=== PATIENT | female | born 1955 | race Hispanic/Latino ===

== ENCOUNTER 2020-12-09 06:59 | Observation (INO) | payer MEDICARE ==
[2020-12-08 11:20] LABS: BASOPHILS # (AUTO) 0.1 (0.0-0.1); BASOPHILS % 0.9 % (0.0-1.0); EOSINOPHILS # (AUTO) 0.1 (0.0-0.4); EOSINOPHILS % 0.7 % (0.0-6.0); HEMATOCRIT 39.4 % (34.2-44.1); HEMOGLOBIN 13.5 g/dL (12.0-16.0); LYMPHOCYTES # (AUTO) 0.6 (1.0-3.2); LYMPHOCYTES % 6.9 % (18.0-39.1); MEAN CORPUSCULAR HGB CONC 34.3 g/dL (31-35); MEAN CORPUSCULAR VOLUME 99.2 fL (81-99); MONOCYTES # (AUTO) 0.6 (0.2-0.8); MONOCYTES % 6.9 % (4.4-11.3); NEUTROPHILS # (AUTO) 7.1 (2.1-6.9); NEUTROPHILS % 84.4 % (38.7-80.0); PLATELET COUNT 176 x10e3/uL (140-360); RED BLOOD COUNT 3.97 x10e6/uL (3.6-5.1); RED CELL DISTRIBUTION WIDTH 13.3 % (11.7-14.4)
[2020-12-08 11:41] LABS: ANION GAP 13.4 mmol/L (8-16); POTASSIUM 3.4 mmol/L (3.5-5.1)
[~2020-12-09] VITALS: Ht 147.3 cm; Wt 61.2 kg
[~2020-12-09 06:59] MED LIST: AMLODIPINE BESY10 MG PO; COREG12.5 MG PO; CRESTOR10 MG PO; HYDROCHLOROTHIA25 MG PO; LEVOTHYROXINE88 MCG PO; SERTRALINE HCL50 MG PO; SOLIQUA 100 UNIT3 ML SC; ZESTRIL10 MG PO
[2020-12-09] MEDS ORDERED: DEXAMETHASONE SOD PHOS 10 MG/1 ML VIAL ONE (07:48)
[2020-12-09] MEDS ORDERED: GABAPENTIN 300 MG CAP ONE (07:48)
[2020-12-09] MEDS ORDERED: CELECOXIB 200 MG CAP ONE (07:48)
[2020-12-09] MEDS ORDERED: ROPIVACAINE 246.25 MG, EPINEPHRINE HCL 1:1000 1ML 0.5 MG, CLONIDINE HCL 0.08 MG, KETORO... INJ ONE ×5 (08:00)
[2020-12-09] MEDS ORDERED: SODIUM CHLORIDE 0.9% 50ML 100 ML ONE (08:09)
[2020-12-09] MEDS ORDERED: TRANEXAMIC ACID 1,000 MG/10 ML ML ONE (08:48)
[2020-12-09] MEDS ORDERED: BUPIVACAINE HCL 0.5% INJ 30 ML VIAL INJ ONE (08:48)
[2020-12-09] MEDS ORDERED: Vancomycin IV 0 MG ONE (08:48)
[2020-12-09] MEDS ORDERED: SODIUM CHLORIDE 0.9% 500ML 500 ML ONE (08:49)
[2020-12-09] MEDS ORDERED: LIDOCAINE 1% W/EPINEPHRINE 20 ML VIAL ONE (10:49)
[2020-12-09] MEDS ORDERED: KETOROLAC TROMETHAMINE 30 MG/ML VIAL IV PRN (12:15)
[2020-12-09] MEDS ORDERED: ONDANSETRON HCL INJ 2MG/ML 2ML 2 MG/ML VIAL IV PRN (12:15)
[2020-12-09] MEDS ORDERED: SODIUM CHLORIDE 0.9% 1000ML 1,000 ML IV SCH (12:15)
[2020-12-09] MEDS ORDERED: HYDROCODONE/APAP 5MG-325MG TAB PO PRN (12:15)
[2020-12-09] MEDS ORDERED: DOCUSATE SODIUM 100 MG CAP PO PRN (12:15)
[2020-12-09] MEDS ORDERED: DIPHENHYDRAMINE HCL INJ 50 MG/ML VIAL IV PRN (12:15)
[2020-12-09] MEDS ORDERED: ACETAMINOPHEN 650 MG SUPP PR PRN (12:15)
[2020-12-09 14:15] VITALS: BP 146/68
[2020-12-09] MEDS: Cefazolin 1 GM in SODIUM CHLORIDE 0.9% 50ML 50 ML IV SCH (17:09)
[2020-12-09] MEDS: ASPIRIN 325 MG TAB PO SCH (17:09)
[2020-12-09] MEDS: CELECOXIB 100 MG CAP PO SCH (17:09)
[2020-12-09] MEDS ORDERED: ACETAMINOPHEN 1000 MG/100 ML IV PRN (18:00)
[2020-12-09] MEDS: HYDROCODONE/APAP 7.5MG-325MG 1 EA TAB PO PRN ×2 (18:05→23:22)
[2020-12-09 20:00] VITALS: BP 143/66
[2020-12-09] MEDS ORDERED: DEXTROSE 50% SYRINGE 50 ML IV PRN (20:00)
[2020-12-09 20:20] VITALS: BP 143/66
[2020-12-09] MEDS ORDERED: ZOLPIDEM TARTRATE 5 MG TAB PO PRN (21:00)
[2020-12-09] MEDS: INSULIN LISPRO 100 UNIT/1 ML 3ML VIAL SQ SCH (21:14)
[2020-12-10] VITALS: BP 129/68
[2020-12-10] MEDS: Cefazolin 1 GM in SODIUM CHLORIDE 0.9% 50ML 50 ML IV SCH ×2 (01:29→09:23)
[2020-12-10 04:00] VITALS: BP 150/71
[2020-12-10] MEDS: HYDROCODONE/APAP 7.5MG-325MG 1 EA TAB PO PRN (04:41)
[2020-12-10 05:51] LABS: HEMATOCRIT 30.5 % (34.2-44.1); HEMOGLOBIN 10.9 g/dL (12.0-16.0)
[2020-12-10 08:32] VITALS: BP 124/63
[2020-12-10] MEDS: INSULIN LISPRO 100 UNIT/1 ML 3ML VIAL SQ SCH ×2 (08:33→12:03)
[2020-12-10 09:03] VITALS: BP 124/63
[2020-12-10] MEDS: ASPIRIN 325 MG TAB PO SCH (09:22)
[2020-12-10] MEDS: CELECOXIB 100 MG CAP PO SCH (09:23)
[2020-12-10 12:48] VITALS: BP 148/61
[2020-12-10] MEDS ORDERED: ONDANSETRON HCL 4 MG ORAL DISINTEGRATING TAB PO PRN (13:00)
== END 2020-12-10 13:01 | disposition home or self-care (01) ==
LOC: OR 06:59 → PACU V 14:13 → MED/SURG 14:20
PROVIDERS: ADMIT Specialist; ATTEND Specialist
DX: S42.242A 4-part fracture of surgical neck of left humerus, initial encounter for closed fracture (principal); M80.022A Age-related osteoporosis with current pathological fracture, left humerus, initial encounter for fracture; E11.9 Type 2 diabetes mellitus without complications; I10 Essential (primary) hypertension; E03.9 Hypothyroidism, unspecified; Z88.0 Allergy status to penicillin; Z88.8 Allergy status to other drugs, medicaments and biological substances; F32.A Depression, unspecified; E78.5 Hyperlipidemia, unspecified; Z79.4 Long term (current) use of insulin; Z20.822 Contact with and (suspected) exposure to COVID-19
CPT/HCPCS: 23470; 36415 ×3; 71046; 73020; 80048; 82948 ×2; 85014; 85018; 85025; 86850; 86900; 86920; 93005; 97116; 97139; 97162; C1713; G0378 ×2; J0131; J0171; J0690 ×2; J1100; J1885; J2795; J7040; U0002; J3370